=== PATIENT | female | born 1985 | race Caucasian/White ===

== ENCOUNTER 2016-12-13 21:05 | Outpatient (CLI) | payer OTHER ==
[~2016-12-13] VITALS: Ht 157.5 cm; Wt 63.2 kg
[2016-12-13 21:41] VITALS: BP 129/82
[2016-12-13] MEDS ORDERED: ONDANSETRON ODT 4 MG ONE (22:06)
[2016-12-13] MEDS ORDERED: ONDANSETRON 4 MG TABLET PO ONE (22:30)
== END 2016-12-13 22:33 | disposition home or self-care (01) ==
LOC: LDOP 21:05
PROVIDERS: ATTEND Student in an Organized Health Care Education/Training Program
DX: O26.893 Other specified pregnancy related conditions, third trimester (principal); O21.9 Vomiting of pregnancy, unspecified; R10.9 Unspecified abdominal pain; Z3A.38 38 weeks gestation of pregnancy
CPT/HCPCS: 59025; 89060; 99201; Q0162; G0463; Q0114

== ENCOUNTER 2016-12-14 17:05 | Inpatient (IN) | payer OTHER ==
[~2016-12-14] VITALS: Ht 157.5 cm; Wt 61.8 kg
[2016-12-14] MEDS ORDERED: LIDOCAINE 1%, 20ML ONE (17:49)
[2016-12-14] MEDS: LACTATED RINGERS 1,000 ML IV SCH ×2 (18:00→20:21)
[2016-12-14] MEDS ORDERED: AMPICILLIN 2 GM in SODIUM CHLORIDE 0.9% 100 ML IVPB STA (19:11)
[2016-12-14] MEDS ORDERED: OXYTOCIN 30U/ 0.9% NaCL 500ML 500 ML IV ONE (19:11)
[2016-12-14] MEDS ORDERED: FENTANYL/BUPIV./NS/PF 250 ML EPIDCONT ONE (19:27)
[2016-12-14] MEDS ORDERED: BUPIVACAINE 0.25% ONE (19:28)
[2016-12-14] MEDS ORDERED: FENTANYL PF 100 MCG/2ML ONE (19:28)
[2016-12-14] MEDS ORDERED: FENTANYL PF 100 MCG/2ML IVPush PRN (19:30)
[2016-12-14] MEDS ORDERED: ONDANSETRON 2MG/ML, 2ML IVPush PRN (19:30)
[2016-12-14] MEDS ORDERED: TERBUTALINE 1 MG/ML, 1ML SQ PRN (19:30)
[2016-12-14] MEDS ORDERED: FENTANYL PF 100 MCG/2ML IV PRN (19:30)
[2016-12-14] MEDS ORDERED: TERBUTALINE 1 MG/ML, 1ML IVPush PRN ×2 (19:30)
[2016-12-14] MEDS ORDERED: OXYTOCIN 30U/ 0.9% NaCL 500ML 500 ML ONE (20:14)
[2016-12-14] MEDS ORDERED: NEWBORN KIT ONE (20:14)
[2016-12-14] MEDS: AMPICILLIN 1 GM in SODIUM CHLORIDE 0.9% 50 ML IVPB SCH (22:10)
[2016-12-14] MEDS ORDERED: ACETAMINOPHEN 325 MG TABLET ONE (23:18)
[2016-12-14] MEDS ORDERED: ACETAMINOPHEN 325 MG TABLET PO PRN (23:30)
[2016-12-15] MEDS ORDERED: MISOPROSTOL 200 MCG TABLET PR PRN (02:00)
[2016-12-15] MEDS ORDERED: METHYLERGONOVINE 0.2 MG/ML IM PRN (02:00)
[2016-12-15] MEDS ORDERED: HYDROcodone/APAP 5/325 TABLET PO PRN (02:00)
[2016-12-15] MEDS ORDERED: CALCIUM CARBONATE 500 MG TAB.CHEW PO PRN (02:00)
[2016-12-15] MEDS ORDERED: ONDANSETRON 2MG/ML, 2ML IV PRN (02:00)
[2016-12-15] MEDS ORDERED: CARBOPROST TROMETHAMINE 250 MCG/ML, 1ML IM PRN (02:00)
[2016-12-15] MEDS: OXYTOCIN 30U/ 0.9% NaCL 500ML 500 ML IV SCH ×2 (02:08→11:52)
[2016-12-15] MEDS: LACTATED RINGERS 1,000 ML IV SCH (02:10)
[2016-12-15] MEDS: AMPICILLIN 1 GM in SODIUM CHLORIDE 0.9% 50 ML IVPB SCH (03:30)
[2016-12-15 04:15] VITALS: BP 102/65
[2016-12-15 08:40] VITALS: BP 102/67
[2016-12-15] MEDS: DOCUSATE 100 MG CAPSULE PO PRN ×2 (08:43→22:57)
[2016-12-15] MEDS: PRENATAL VIT/IRON/FA 1 EACH TABLET PO SCH (08:43)
[2016-12-15] MEDS: IBUPROFEN 600 MG TABLET PO PRN ×2 (11:03→22:57)
[2016-12-15 12:00] VITALS: BP 102/68
[2016-12-15] MEDS ORDERED: RHOGAM FROM BLOOD BANK 1 NOTE EA IM/IV ONE (15:30)
[2016-12-15 16:00] VITALS: BP 103/66
[2016-12-15 21:50] VITALS: BP 100/67
[2016-12-16] MEDS: DOCUSATE 100 MG CAPSULE PO PRN (06:52)
[2016-12-16] MEDS: PRENATAL VIT/IRON/FA 1 EACH TABLET PO SCH (06:52)
[2016-12-16] MEDS: IBUPROFEN 600 MG TABLET PO PRN (06:52)
[2016-12-16 08:28] VITALS: BP 101/66
[2016-12-16] MEDS ORDERED: IBUP-1222 PO (08:42)
== END 2016-12-16 09:45 | disposition home or self-care (01) | DRG 775 ==
LOC: LDOP 17:05 → LDIP 19:20 → 2NW 12-15 04:00
PROVIDERS: ADMIT Student in an Organized Health Care Education/Training Program; ATTEND Student in an Organized Health Care Education/Training Program
PROC: 10E0XZZ Delivery of Products of Conception, External Approach (ICD-10-PCS; principal; 2016-12-15)
PROC: 0HQ9XZZ Repair Perineum Skin, External Approach (ICD-10-PCS; 2016-12-15)
PROC: 10907ZC Drainage of Amniotic Fluid, Therapeutic from Products of Conception, Via Natural or Artificial Opening (ICD-10-PCS; 2016-12-15)
PROC: 00HU33Z Insertion of Infusion Device into Spinal Canal, Percutaneous Approach (ICD-10-PCS; 2016-12-15)
PROC: 3E0R3CZ (ICD-10-PCS; 2016-12-15)
DX: O99.824 Streptococcus B carrier state complicating childbirth (principal); Q61.3 Polycystic kidney, unspecified; Z37.0 Single live birth; O99.62 Diseases of the digestive system complicating childbirth; K90.0 Celiac disease; O99.284 Endocrine, nutritional and metabolic diseases complicating childbirth; Z3A.38 38 weeks gestation of pregnancy; E03.9 Hypothyroidism, unspecified; O70.0 First degree perineal laceration during delivery; O76 Abnormality in fetal heart rate and rhythm complicating labor and delivery
CPT/HCPCS: 36415; 85025; 85461; 86850; 86900; J0290; J2790; J3010; J3490; J2590; J7120